=== PATIENT | female | born 1945 | race Caucasian/White ===

== ENCOUNTER 2021-11-24 15:35 | Emergency (ER) | payer MEDICARE ==
[~2021-11-24] VITALS: Ht 165.1 cm; Wt 67.3 kg
--- NOTE | 2021-11-24 16:08 | PHYS DOC ---
Past History Additional Past Medical Histor: KIDNEY DISEASE Past Surgical History: Hysterectomy, Other Additional Past Surgical Histo: EYE, KNEE, HAND, TOE SURGERIES Alcohol Use: None General Adult EDM: Chief Complaint: ABDOMINAL PAIN HPI: HPI: Patient is a 76-year-old female who presents with lower abdominal pain that started on Wednesday. Patient states that she felt constipated and uses a laxative on Wednesday night and Wednesday. Patient reports that her bowel movement yesterday was normal for her. Pain has been constant and persisted. Pain is generalized to the lower abdomen but reports more pain in the right side. Denies pain with urination or urgency. Denies taking thing at home for discomfort. No nausea or vomiting. No fevers. Denies chest pain or shortness of breath. Patient has a history of hypertension, kidney disease. Patient been fully vaccinated for COVID-19. Review of Systems: Review of Systems: ROS At least 10 ROS systems have been reviewed and are negative except as documented in the HPI. General: Negative except as outlined in HPI above. Skin: Negative except as outlined in HPI above. HEENT: Negative except as outlined in HPI above. Neck: Negative except as outlined in HPI above. Respiratory: Negative except as outlined in HPI above.. Cardiovascular: Negative except as outlined in HPI above. Abdomen: Negative except as outlined in HPI above. : Negative except as outlined in HPI above. Back/MSK: Negative except as outlined in HPI above. Neuro: Negative except as outlined in HPI above. Psych: Negative except as outlined in HPI above. Allergies: Allergies: Allergies Coded Allergies Type Severity Reaction Last Updated Verified No Known Drug Allergies 11/24/21 No Physical Exam: PE: Constitutional: Well developed, well nourished, no acute distress, non-toxic appearance. [] HENT: Normocephalic, atraumatic, bilateral external ears normal, oropharynx moist, no oral exudates, nose normal. [] Eyes: PERRLA, EOMI, conjunctiva normal, no discharge. [] Neck: Normal range of motion, no tenderness, supple, no stridor. [] Cardiovascular:Heart rate regular rhythm, no murmur [] Lungs & Thorax: Bilateral breath sounds clear to auscultation [] Abdomen: Bowel sounds normal, soft, right-sided lower quadrant tenderness, no guarding, no rebound tenderness Skin: Warm, dry, no erythema, no rash. [] Back: No tenderness, no CVA tenderness. [] Extremities: No tenderness, no cyanosis, no clubbing, ROM intact, no edema. [] Neurologic: Alert and oriented X 3, normal motor function, normal sensory function, no focal deficits noted. [] Psychologic: Affect normal, judgement normal, mood normal. [] Current Patient Data: Vital Signs: Vital Signs Date Time Temp Pulse Resp B/P (MAP) Pulse Ox O2 Delivery O2 Flow Rate FiO2 11/24/21 15:50 97.8 79 18 152/76 (101) 98 EKG: EKG: [] Sinus rhythm, heart rate [address] elevation or depression. Radiology/Procedures: Radiology/Procedures: []Exam: CT of abdomen and pelvis without contrast INDICATION: Abdominal pain TECHNIQUE: Sequential axial images through the abdomen and pelvis obtained without IV contrast. Sagittal and coronal reformatted images were reconstructed from the axial data and reviewed. Exposure: One or more of the following in the visualized dose reduction techniques were utilized for this examination: 1. Automated exposure control 2. Adjustment of the MA and/or KV according to patient size 3. Use of iterative of reconstructive technique Comparisons: None FINDINGS: Heart size is normal. No pericardial effusion. Strandy opacities dependent portion lungs likely representing atelectasis. No pleural effusion. Evaluation solid organs limited secondary to noncontrast technique. Liver, spleen, pancreas, gallbladder and adrenals are unremarkable. No perinephric inflammation or hydronephrosis. No renal or ureteral calculi are identified. Bladder is decompressed not well evaluated. Uterus is absent. No abnormal adnexal mass. Diverticulosis noted at the sigmoid colon without evidence of acute diverticulitis. The appendix is dilated with extensive adjacent inflammatory changes. A few adjacent mildly enlarged lymph nodes. No free intra-abdominal air or fluid. No obstruction. Abdominal aorta has normal course and caliber. No enlarged intra-abdominal lymph nodes are identified. No suspicious osseous lesions or acute fractures. IMPRESSION: Findings of acute appendicitis with adjacent inflammation. No evidence for adjacent abscess or perforation. Electronically signed by: Satya Vargas MD (11/24/2021 4:28 PM) [facility] XR CHEST 1V Clinical Indication: Reason: abdominal pain / Spl. Instructions: / History: Comparison: None. Findings: The cardiomediastinal silhouette is normal. Lungs are clear. There is no pneumothorax. No pleural effusion is appreciated. No acute bone abnormality. IMPRESSION: No acute cardiopulmonary process. Electronically signed by: Simone Mariee MD (11/24/2021 4:26 PM) [facility] Heart Score: C/O Chest Pain: No Risk Factors: Risk Factors: DM, Current or recent (<one month) smoker, HTN, HLP, family history of CAD, obesity. Risk Scores: Score 0 - 3: 2.5% MACE over next 6 weeks - Discharge Home Score 4 - 6: 20.3% MACE over next 6 weeks - Admit for Clinical Observation Score 7 - 10: 72.7% MACE over next 6 weeks - Early Invasive Strategies Course & Med Decision Making: Course & Med Decision Making Pertinent Labs and Imaging studies reviewed. (See chart for details) [] 76-year-old female presents with lower abdominal pain that started on Wednesday. Pain is located in the lower abdomen but reports more tenderness on the lower right side. Work-up in ER consisted of labs, urinalysis, EKG, CT abdomen pelvis. CT abdomen pelvis shows acute appendicitis. UA positive for infection. Patient started on Zosyn and Rocephin. Discussed results with patient. Advised patient she would need to be admitted for surgical consult. Patient agrees with admission plan. Denies needing anything for pain at this time. Spoke with Dr. Negrete at [facility]. Dr. Negrete will accept patient for surgical consult. Patient to be placed n.p.o. at midnight. Consulted Dr. Mann who will accept patient at [facility] for acute appendicitis. Jorge Disclaimer: Jorge Disclaimer: This electronic medical record was generated, in whole or in part, using a voice recognition dictation system. Departure Departure: Impression: Primary Impression: Appendicitis, acute Qualified Codes: K35.80 - Unspecified acute appendicitis Disposition: 02 SHORT TERM HOSPITAL Condition: STABLE ODIN SPRING APRN Nov 24, 2021 16:08
[2021-11-24 16:23] LABS: BASO % 0 % (0-3); EOS # 0.1 x10^3/uL (0.0-0.7); EOS % 1 % (0-3); HEMATOCRIT 37.2 % (36.0-47.0); LYMPH # 0.9 x10^3/uL (1.0-4.8); LYMPH % 12 % (24-48); MEAN CORPUSCULAR HEMOGLOBIN 26 pg (25-35); MEAN CORPUSCULAR HGB CONC 32 g/dL (31-37); MEAN CORPUSCULAR VOLUME 80 fL (79-100); MONO # 0.5 x10^3/uL (0.0-1.1); MONO % 7 % (0-9); NEUT # 6.2 x10^3uL (1.8-7.7); NEUT % 80 % (31-73); PLATELET COUNT 302 x10^3/uL (140-400); RED BLOOD COUNT 4.65 x10^6/uL (3.50-5.40); RED CELL DISTRIBUTION WIDTH 14.9 % (11.5-14.5); WHITE BLOOD COUNT 7.8 x10^3/uL (4.0-11.0)
--- NOTE | 2021-11-24 16:28 | RAD ---
XR CHEST 1V Clinical Indication: Reason: abdominal pain / Spl. Instructions: / History: Comparison: None. Findings: The cardiomediastinal silhouette is normal. Lungs are clear. There is no pneumothorax. No pleural eff usion is appreciated. No acute bone abnormality. IMPRESSION: No acute cardiopulmonary process. Electronically signed by: Simone Mariee MD (11/24/2021 4:26 PM) [facility]
[2021-11-24 16:31] LABS: CALCIUM 9.1 mg/dL (8.5-10.1); CREATININE 1.4 mg/dL (0.6-1.0); GFR 36.7; POTASSIUM 3.6 mmol/L (3.5-5.1)
--- NOTE | 2021-11-24 16:31 | RAD ---
Exam: CT of abdomen and pelvis without contrast INDICATION: Abdominal pain TECHNIQUE: Sequential axial images through the abdomen and pelvis obtained without IV contrast. Sagit miriam and coronal reformatted images were reconstructed from the axial data and reviewed. Exposure: One or more of the following in the visualized dose reduction techniques were utilized for this examination: 1. Automated exposure control 2. Adjustment of the MA and/or KV according to patient size 3. Use of iterative of reconstructive technique Comparisons: None FINDINGS: Heart size is normal. No pericardial effusion. Strandy opacities dependent portion lungs likely repre senting atelectasis. No pleural effusion. Evaluation solid organs limited secondary to noncontrast technique. Liver, spleen, pancreas, gallbladder and adrenals are unremarkable. No perinephric inflammation or hydronephrosis. No renal or ureteral calculi are identified. Bladder is decompressed not well evaluated. Uterus is absent. No abnormal adnexal mass. Diverticulosis noted at the sigmoid colon without evidence of acute diverticulitis. The appendix is d ilated with extensive adjacent inflammatory changes. A few adjacent mildly enlarged lymph nodes. No f ree intra-abdominal air or fluid. No obstruction. Abdominal aorta has normal course and caliber. No enlarged intra-abdominal lymph nodes are identified. No suspicious osseous lesions or acute fractures. IMPRESSION: Findings of acute appendicitis with adjacent inflammation. No evidence for adjacent abscess or perfor ation. Electronically signed by: Satya Vargas MD (11/24/2021 4:28 PM) [facility]
[2021-11-24 16:36] LABS: ALBUMIN 3.6 g/dL (3.4-5.0); ALBUMIN/GLOBULIN RATIO 0.9 (1.0-1.7); CLARITY,URINE CLOUDY; COLOR,URINE YELLOW; TOTAL BILIRUBIN 1.2 mg/dL (0.2-1.0); TOTAL PROTEIN 7.6 g/dL (6.4-8.2)
[2021-11-24 16:37] LABS: BACTERIA,URINE MOD /HPF (0-FEW); GLUCOSE,URINE 100 mg/dL (NEG); NITRITE,URINE NEG (NEG); SQUAMOUS EPITHELIAL CELL,UR MANY /LPF
[2021-11-24] MEDS ORDERED: MORPHINE SULFATE 4 MG/ML DISP.SYRIN. IV PRN (16:45)
[2021-11-24] MEDS ORDERED: ONDANSETRON PF 4 MG/2 ML VIAL. IVP ONE (16:45)
[2021-11-24] MEDS ORDERED: IV NORMAL SALINE 1,000ML 1,000 ML IV ONE (16:45)
[2021-11-24] MEDS ORDERED: IV NORMAL SALINE 50ML 50 ML ONE ×2 (16:52→16:53)
[2021-11-24] MEDS ORDERED: cefTRIAXone SODIUM 1 GM VIAL ONE (16:52)
[2021-11-24] MEDS ORDERED: PIPERACILLIN/TAZOBACTAM 3.375 GM VIAL IV ONE (16:53)
[2021-11-24] MEDS ORDERED: PIPERACILLIN/TAZOBACTAM 3.375 GM in IV NORMAL SALINE 50ML 50 ML IV ONE (17:00)
[2021-11-24 18:26] VITALS: BP 112/70
--- NOTE | 2021-11-24 18:42 | EKG ---
[address] [address] Test Date: 2021-11-24 Test Time: 16:05:36 Pat Name: NATHALIE CHAVEZ Department: Room: Gender: F Media Technician: GIL : 1945 Requested By: ODIN SPRING Order Number: [id number] Reading MD: Jasvir Godfrey MD Measurements Intervals [place] Rate: 77 P: 34 [place]: 164 QRS: -26 QRSD: 88 T: 54 QT: 414 QTc: 470 Interpretive Statements SINUS RHYTHM NON-SPECIFIC ST/T CHANGES Electronically Signed On 11-25-2021 10:59:26 FLIGHT NURSE by Jasvir Godfrey MD
== END 2021-11-24 19:21 | disposition short-term general hospital (02) ==
LOC: ER 15:35
DX: K35.80 Unspecified acute appendicitis (principal); Z20.822 Contact with and (suspected) exposure to COVID-19; Z90.710 Acquired absence of both cervix and uterus
CPT/HCPCS: 36415; 71045; 74176; 80053; 81001; 83690; 85025; 87086; 87147; 87426; 93005; 96365; 96375; 99285; J0696; J2543; J7030; U0003

== ENCOUNTER 2021-11-27 15:58 | Emergency (ER) | payer MEDICARE ==
[~2021-11-27] VITALS: Ht 165.1 cm; Wt 66.0 kg
--- NOTE | 2021-11-27 16:28 | PHYS DOC ---
Past History Additional Past Medical Histor: KIDNEY DISEASE Past Surgical History: Hysterectomy, Other Additional Past Surgical Histo: EYE, KNEE, HAND, TOE SURGERIES Alcohol Use: None Adult General Chief Complaint Chief Complaint: WOUND CHECK [facility] HPI Patient is a 76-year-old female presenting for incision check. Reports she was recently seen and evaluated our facility 72 hours prior and subsequently sent to [facility] for diagnosis of appendicitis. She underwent laparoscopic appendectomy 48 hours prior which was uncomplicated in nature and subsequently discharged home yesterday. On discharge, she reports her pain has been controlled with provided narcotic pain medication and was started on Augmentin for which she has been taking without compliance issues. Nonetheless, she reported redness around incision directly overlying appendix and right lower quadrant and was concerned. She contacted her surgeon's office and the soonest she could get in was 2 weeks from now which concerned her prompting her to come in for evaluation. Review of Systems Review of Systems Fourteen body systems of review of systems have been reviewed. See HPI for pertinent positives and negative responses, other moise all other systems are negative, non-pertinent or non-contributory Allergies Allergies Allergies Coded Allergies Type Severity Reaction Last Updated Verified No Known Drug Allergies 11/24/21 No Physical Exam Physical Exam Constitutional: Well developed, well nourished, no acute distress, non-toxic appearance. HENT: Normocephalic, atraumatic, bilateral external ears normal, oropharynx moist, no oral exudates, nose normal. Eyes: PERRLA, EOMI, conjunctiva normal, no discharge. Neck: Normal range of motion, no tenderness, supple, no stridor. Cardiovascular: Heart rate regular per monitor Lungs & Thorax: No obvious respiratory distress with bilateral chest rise and fall Abdomen: Bowel sounds normal, soft, no tenderness, no masses, no pulsatile masses. Nonsurgical abdomen, no peritoneal signs Skin: Warm, dry, no rash. Patient does have ecchymosis present to belly and around right lower quadrant consistent with postoperative changes with well- appearing laparoscopic incisions with clean dry and intact dressings in appropriate position. There is mild erythema surrounding right lower quadrant incision site consistent and appropriate for postoperative day 2 findings without any pus formation, subcutaneous crepitus, streaking or other concerning infectious findings Back: No tenderness, no CVA tenderness. Extremities: No tenderness, no cyanosis, no clubbing, ROM intact, no edema. Neurologic: Alert and oriented X 3, grossly normal motor & sensory function, no focal deficits noted. Psychologic: Anxious affect and mood Current Patient Data Vital Signs Vital Signs Date Time Temp Pulse Resp B/P (MAP) Pulse Ox O2 Delivery O2 Flow Rate FiO2 11/27/21 16:13 172/110 (130) 11/27/21 16:05 98.0 80 16 98 Room Air EKG EKG [] Radiology/Procedures Radiology/Procedures [] Heart Score C/O Chest Pain: No Risk Factors: Risk Factors: DM, Current or recent (<one month) smoker, HTN, HLP, family history of CAD, obesity. Risk Scores: Risk Factors: DM, Current or recent (<one month) smoker, HTN, HLP, family history of CAD, obesity. Course & Med Decision Making Course & Med Decision Making ABCs unremarkable HPI and physical exam nonconcerning for any emergent or surgical issues. Patient has nonacute abdomen without any obvious infectious findings. Skin incisions are in appropriate position with clean dry and intact dressings. Right lower quadrant incision site in question well-appearing in nature. Given concern, area was outlined with marker with appropriate monitoring, recommendations to continue current antibiotic regiment, and continue with close outpatient follow-up advised Strict return cautions discussed at length with good understanding by patient. All questions and concerns addressed prior to ER departure Jorge Disclaimer Jorge Disclaimer This electronic medical record was generated, in whole or in part, using a voice recognition dictation system. Departure Departure: Impression: Primary Impression: Encounter for postoperative wound check Disposition: HOME / SELF CARE / HOMELESS Condition: STABLE Referrals: NON,STAFF (PCP) Patient Instructions: Wound Care, [id number] ESSENCE GANNON DO Nov 27, 2021 16:28
[2021-11-27 16:38] VITALS: BP 168/70
== END 2021-11-27 16:38 | disposition home or self-care (01) ==
LOC: ER 15:58
DX: Z48.01 Encounter for change or removal of surgical wound dressing (principal); R58 Hemorrhage, not elsewhere classified; Z90.89 Acquired absence of other organs; Z90.710 Acquired absence of both cervix and uterus
CPT/HCPCS: 99281

== ENCOUNTER → 2022-01-13 | Outpatient (CLI) | payer MEDICARE ==
--- NOTE | 2022-01-13 16:50 | CARD ---
MR#: [id number] Date of Study: 01/13/2022 Ordering Physician: RACQUEL ROGERS, Referring Physician: Amaris BOBBY: Adal Ibarra [facility] APPROVED REPORT EXAM: Two-dimensional and M-mode echocardiogram with Doppler and color Doppler. Other Information Quality : AverageHR: 68bpm Rhythm : NSR INDICATION Hypertension/HCVD 2D DIMENSIONS Left Atrium(2D)3.5 (1.6-4.0cm)IVSd0.8 (0.7-1.1cm) Aortic Root(2D)3.2 (2.0-3.7cm)LVDd5.0 (3.9-5.9cm) PWd0.8 (0.7-1.1cm)LA Erjznj70 (18-58mL) LVDs3.0 (2.5-4.0cm)FS (%) 40.6 % SV85.1 ml Aortic Valve AoV Peak Alvaro.102.2cm/sAoV VTI19.7cm AO Peak GR.4.2mmHgLVOT Peak Alvaro.80.5cm/s LVOT VTI 17.10cmAO Mean GR.2mmHg Mitral Valve MV E Iihvnpec27.4cm/sMV E Peak Gr.4mmHg MV DECEL [id number] A Ouqzhwle51.5cm/s MV E Mean Gr.1mmHgE/A Ratio0.7 Pulmonary Valve PV Peak Mknuyaaq09.3cm/sPV Peak Grad.3mmHg Tricuspid Valve TR P. [id number]/sTR Peak Gr.31mmHg Pulmonary Vein S1 Pfeykhnb23.3cm/sD2 Oqjdooos71.3cm/s LEFT VENTRICLE The left ventricle is normal size. There is normal left ventricular wall thickness. The left ventricu lar systolic function is normal and the ejection fraction is within normal range. LV ejection fractio n at 50 to 55%. There is normal LV segmental wall motion. Transmitral Doppler flow pattern is Grade I -abnormal relaxation pattern. No left ventricle thrombus noted on this study. There is no ventricular septal defect visualized. There is no left ventricular aneurysm. There is no mass noted in the left ventricle. RIGHT VENTRICLE The right ventricle is normal size. There is normal right ventricular wall thickness. The right ventr icular systolic function is normal. ATRIA The left atrium size is normal. The right atrium size is normal. The interatrial septum is intact wit h no evidence for an atrial septal defect or patent foramen ovale as noted on 2-D or Doppler imaging. AORTIC VALVE The aortic valve is calcified but opens well. Doppler and Color Flow revealed no significant aortic r egurgitation. There is no significant aortic valvular stenosis. There is no aortic valvular vegetatio n. MITRAL VALVE The mitral valve is normal in structure and function. There is no evidence of mitral valve prolapse. There is no mitral valve stenosis. Doppler and Color-flow revealed trace to mild mitral regurgitation . TRICUSPID VALVE The tricuspid valve is normal in structure and function. Doppler and Color Flow revealed trace tricus pid regurgitation. The PA pressure was estimated at 36 mmHg. There is no tricuspid valve prolapse or vegetation. There is no tricuspid valve stenosis. PULMONIC VALVE The pulmonary valve is normal in structure and function. Doppler and Color Flow revealed no pulmonic valvular regurgitation. There is no pulmonic valvular stenosis. GREAT VESSELS The aortic root is normal in size. The ascending aorta is normal in size. The pulmonary artery is nor mal. The IVC is normal in size and collapses >50% with inspiration. PERICARDIAL EFFUSION There is no pleural effusion. There is no evidence of significant pericardial effusion. Critical Notification Critical Value: No <Conclusion> The left ventricle is normal size. The left ventricular systolic function is normal and the ejection fraction is within normal range. LV ejection fraction at 50 to 55%. Doppler and Color Flow revealed no significant aortic regurgitation. There is no significant aortic valvular stenosis. Doppler and Color-flow revealed trace to mild mitral regurgitation. Doppler and Color Flow revealed trace tricuspid regurgitation. The PA pressure was estimated at 36 mmHg. Signed by : Frederick Rosenberg MD Electronically Approved : 01/13/2022 16:49:50
== END ==
LOC: ECHO 13:57
PROVIDERS: ATTEND Internal Medicine Cardiovascular Disease
DX: I08.0 Rheumatic disorders of both mitral and aortic valves (principal); I10 Essential (primary) hypertension
CPT/HCPCS: 93306

== ENCOUNTER → 2022-01-22 | Outpatient (CLI) | payer MEDICARE ==
[2022-01-22 12:00] LABS: CLARITY,URINE CLEAR; COLOR,URINE YELLOW; GLUCOSE,URINE NEG (NEG)
[2022-01-22 12:01] LABS: BACTERIA,URINE 0 /HPF (0-FEW); NITRITE,URINE NEG (NEG); SQUAMOUS EPITHELIAL CELL,UR MANY /LPF; UROBILINOGEN,URINE 0.2 mg/dL (0.2 mg/dL); WBC,URINE OCC /HPF (0-4)
== END ==
LOC: LAB 09:02
PROVIDERS: ATTEND Urology
DX: N30.01 Acute cystitis with hematuria (principal)
CPT/HCPCS: 81001